=== PATIENT | male | born 1980 | race Caucasian/White ===

== ENCOUNTER 2024-08-27 15:23 | Emergency (ER) | payer OTHER, SELFPAY ==
--- NOTE | ~2024-08-27 | XR_ITS ---
EXAMINATION: XR SHOULDER, RIGHT CLINICAL INFORMATION: Right shoulder pain COMPARISON: None available. TECHNIQUE: AP external rotation, Grashey, scapular Y, and axillary views of the right shoulder. FINDINGS: Normal bone mineralization. No fracture, dislocation, or suspicious bone lesion. Normal alignment. The glenohumeral joint is normal. The AC joint demonstrates minimal superior spurring. There is a neutral lateral acromion. No undersurface spurring. The subacromial space is preserved. Remainder of the soft tissue and bony structures appear normal. XR/XR shoulder RT min 2V IMPRESSION: Normal right shoulder. Electronically signed by: Warren Roy MD 08/27/2024 04:38 PM EDT
[2024-08-27 15:35] VITALS: BP 137/87; PULSE 110; RESP 18; TEMP 36.8; O2SAT 98; BMI 33.3
--- NOTE | 2024-08-27 15:41 | ED.GENADULT ---
HPI - General Adult General Chief complaint: Extremity Injury, Upper Stated complaint: right shoulder inj Time Seen by Provider: 08/27/24 16:44 Source: patient Mode of arrival: ambulatory Limitations: no limitations History of Present Illness ED Provider: Renzo Tejeda [facility] narrative: 44 yold male healthy presents to the ED for right shoulder pain. Patient states he was playing with his 27 yold son and while play pushing his son he heard a pop in his right shoulder and ever since he has had pain. Patient denies any blunt trauma. Related Data Previous Rx's ?Medication ?Instructions ?Recorded naproxen 500 mg tablet 500 mg PO BID PRN pain #14 tabs 08/27/24 Allergies Allergy/AdvReac Type Severity Reaction Status Date / Time Iodinated Contrast Media Allergy Anaphylaxis Verified 08/27/24 15:38 [Contrast Dye] Review of Systems Review of Systems: right shoulder pain Yes all other systems are reviewed and are negative [facility] Social History Social History Advance Directives: No Advance Directives Information Provided: No Do you have a plan to hurt others: No Plan Physical Exam ED Vital Signs: Vital Signs - 24 hr 08/27/24 15:35 08/27/24 17:05 Temperature 98.2 F 98.2 F Pulse Rate 110 H 110 H Respiratory Rate 18 18 Blood Pressure 137/87 137/87 Pulse Oximetry 98 98 Oxygen Delivery Method Room Air Room Air BMI result Body Mass Index 33.3 Const General: cooperative, healthy appearing, comfortable, no acute distress, well developed, alert, awake and Physically active Orientation/consciousness: patient oriented x3 HENMT Head: Yes normal to inspection, Yes No palpable skull fracture present, Yes normocephalic, Yes atraumatic and No abrasion Eyes General: appearance normal, both eyes and all related structures Neck Neck: Yes normal visual inspection, Yes full ROM, Yes no lymphadenopathy, Yes no meningeal signs, Yes trachea midline, Yes supple, No anterior neck swelling and No tender Chest Chest palpation & inspection: normal inspection of the chest and normal palpation of entire chest wall Resp Effort & Inspection: normal respiratory effort and able to speak in complete sentences Auscultation: clear to auscultation bilaterally Cardio Jugular venous distension: no JVD Heart sounds: S1 normal heart sound present and S2 normal heart sound present GI Inspection: Yes normal to inspection Palpation (GI): Soft to palpation, not firm, nontender, no guarding and not rigid General: Yes no CVA tenderness Back/Spine/Pelvis Back: no CVA tenderness and No back tenderness Skin General skin exam: no rashes or lesions noted, elasticity normal and turgor normal Neuro General: patient oriented x3, gait normal, tone normal, moves all extremities, Normal light touch and pain sensation, no meningeal signs, no focal motor deficits and CN's II-XI intact bilaterally Extrem General: Yes normal to inspection, Yes full ROM and Yes capillary refill normal Shoulder/upper arm images: 1. positive for tenderness on palpation. negative for crepitus, erythema, deformities, ecchymosis, or swelling. positive for pain on range of motion. rest of extremity normal. Motor, neuro, and vascular exam is intact. Psych Appearance: grossly normal, well kempt and not disheveled Course Course Course Narrative: RME: 44 yold male presents to the ED for right shoulder pain. patient states he was play pushing with his son and while pushing his son he heard a pop in right shoulder. Patient is able to move right shoulder but with pain. Patient is able to bring right hand to left shoulder. Negative for any coldness, hotness, swelling or redness. Vascular neuro exam intact. Motor exam intact but limited due to pain. Shoulder x-ray ordered Medical Decision Making Medical Decision Making MDM Narrative: 44-year-old male presents to ED for right shoulder pain after hitting a pop in his shoulder while playing with his kids. Patient has pain on range of motion. Patient denies any swelling, redness on bluish black discoloration. X-ray normal negative for fracture. Physical exam negative for signs of DVT, osteomyelitis, necrotizing fasciitis, compartment syndrome, arterial occlusion, or any other life-threatening etiology. Physical exam indicates most likely muscle tear. Patient explained worrisome signs and informed return to the ED immediately. Patient informed he will need follow up with primary care provider and ortho for possible physical therapy and MRI if pain does not improve. Patient given copy of xray. Differential Diagnosis Differential Diagnoses: The differential diagnosis associated with the presentation includes (fracture, dislcocation) Admission/Observation Consideration of admission/observation: Escalation of care including admission/observation considered Independent Interpretation I performed an independent interpretation of an: Plain X-Ray Radiology Impression Discussion of test interpretation with radiology: I have reviewed the radiologist's reading. Independent Historian Clinical information obtained from an independent historian. History obtained from or confirmed by: Other (patient) Prescription Management I considered prescription management with: Pain Medication Discharge Plan Discharge Clinical Impression: Shoulder sprain Patient Disposition: Home, Self-Care Instructions: Shoulder Sprain (ED) Additional Instructions: Recommend follow up with primary care provider and orthopedic surgeon for possible physical therapy referral and MRI if there is no improvement in pain. You were placed in a sling. Do not stay in sling all day. Recommend removal of sling at times for range of motion activities for right shoulder. Return to the ED immediately for any worsening pain, swelling, popping sound, bluish discoloration, fever, chills, numbness/tingling, chest pain, shortness of breath, neck pain, or any other concerning symptoms. Prescriptions: New naproxen 500 mg tablet 500 mg PO BID PRN (Reason: pain) Qty: 14 0RF Referrals: [facility] [place] [facility] [Provider Group] (Shoulder sprain possible rotator cuff injury. Physical therapy MRI may be needed) Stand Alone Forms: Work/School Release Interventions: ED Discharge Assessment Last Done: 08/27/24 17:05 Discharge Date/Time: 08/27/24 17:08 Print Language: Ukrainian
[2024-08-27 17:05] VITALS: BP 137/87; PULSE 110; RESP 18; TEMP 36.8; O2SAT 98
== END 2024-08-27 17:08 | disposition home or self-care (01) ==
PROVIDERS: Emergency Provider Emergency Medicine Emergency Medical Services
DX: S43.401A Unspecified sprain of right shoulder joint, initial encounter (principal); M25.511 Pain in right shoulder; X50.9XXA Other and unspecified overexertion or strenuous movements or postures, initial encounter; Y93.9 Activity, unspecified; Y92.9 Unspecified place or not applicable; Y99.8 Other external cause status
CPT/HCPCS: 73030; 99282; 99283

== ENCOUNTER → 2024-08-27 15:39 | Outpatient (BNV) | payer OTHER, SELFPAY | PROVIDERS: Emergency Provider Emergency Medicine Emergency Medical Services; Visit Provider Radiology Diagnostic Radiology | DX: M25.511 Pain in right shoulder (principal) | CPT/HCPCS: 73030 ==

== ENCOUNTER 2024-09-25 12:20 | Outpatient (AMB) | payer OTHER, SELFPAY ==
--- NOTE | 2024-09-25 12:31 | A.OFFVIS_ITS ---
Vital Signs 09/25/24 12:32 Height 5 ft 5 in Weight 200 lb BMI 33.3 Intake Visit Reasons: ER-F/U Right Shoulder sprain-DOI 08/27/24 Intake Note: Stefano is a 44 year old right hand dominant male who presents today for a evaluation of his right shoulder pain, 08/27/24. Patient states he was playing with his 27 year old son. While playing he pushed his son and he heard a pop in his right shoulder. Since then he has been having pain. Patient was seen at the ED on 08/27/24 and they gave him a sling and recommended to remove the sling to work on gentle ROM. Patient reports that he is having pain all the time, and worsened with lifting . He has numbness. He is taking naproxen which is not helpfin. His pain is affecting his sleep. Allergies Iodinated Contrast Media [Contrast Dye] Allergy (Verified 09/25/24 12:36) Anaphylaxis HPI HPI ER-F/U Right Shoulder sprain-DOI 08/27/24: Details: Stefano is a 44 year old right hand dominant male who presents today for a evaluation of his right shoulder pain, 08/27/24. Patient states he was playing w ith his 27 year old son. While playing he pushed his son and he heard a pop in his right shoulder. Since then he has been having pain. Patient was seen at the ED on 08/27/24 and they gave him a sling and recommended to remove the sling to work on gentle ROM. Patient reports that he is having pain all the time, and worsened with lifting . He has numbness. He is taking naproxen which is not helpfin. His pain is affecting his sleep. Review of Systems Const All systems reviewed & are unremarkable except as noted in HPI and below Physical Exam Vital Signs: BMI result Body Mass Index 33.3 Extrem Other: Patient's right shoulder normal to inspection No erythema, ecchymosis, edema noted No lacerations, abrasions, open areas No evidence of infection Patient reports no tenderness to palpation of the bicipital groove, greater tuberosity, acromion, clavicle, or elsewhere on the right shoulder Patient is able to forward flex to approximately 90 degrees, but reports very significant pain when doing so on the right when compared to the left Bilateral external rotation approximately 60 degrees without pain Unable to assess empty can 3/5 strength on belly press on right, 5/5 on left Distal sensation intact Capillary refill brisk Assessment & Plan Assessment & Plan (1) Internal derangement of right shoulder: Code(s): M24.811 - Other specific joint derangements of right shoulder, not elsewhere classified Category: Medical Plan 1. Internal derangement of right shoulder Patient has been trying exercises at home for 4 weeks with no relief At this time, I feel that MRI is warranted to assess the internal structures of the right shoulder Patient was amenable to this plan Order placed Follow-up after MRI for results review and discussion of further treatment options if indicated, sooner with any acute concerns Orders: Orders MR shoulder RT wo con Today M77.8 - Other enthesopathies, not elsewhere classified Medications: Discontinued naproxen Discontinued Reason: Patient no longer taking 500 mg PO BID PRN 14 tabs 0RF pain Coding Level of Care Code New Pt Level 3 (75123) Diagnoses Internal derangement of right shoulder M24.811
[2024-09-25 12:32] VITALS: BMI 33.3
== END 2024-09-25 13:00 | disposition home or self-care (01) ==
PROVIDERS: PCP Internal Medicine
DX: M24.811 Other specific joint derangements of right shoulder, not elsewhere classified (principal)
CPT/HCPCS: 99203

== ENCOUNTER → 2024-09-25 12:20 | Outpatient (BNVA) | payer OTHER, SELFPAY | PROVIDERS: PCP Internal Medicine; Visit Provider Physician Assistant | DX: M24.811 Other specific joint derangements of right shoulder, not elsewhere classified (principal) | CPT/HCPCS: 99202 ==

== ENCOUNTER 2024-10-02 07:27 | Outpatient (REF) | payer OTHER, SELFPAY ==
--- NOTE | ~2024-10-02 | MR_ITS ---
CLINICAL HISTORY: M77.8 - Other enthesopathies, not elsewhere classified MR right shoulder Comparison: CR/SR - XR SHOULDER RT MIN 2V - 08/27/24 16:09 EDT Findings: No fracture or dislocation of the osseous structures. There is a trace amount of edema of the acromioclavicular joint. Bone marrow signal is otherwise normal. There is moderate acromioclavicular joint space narrowing. Glenohumeral cartilage is preserved. Large joint effusion. Moderate amount of fluid in the subacromial/ subdeltoid bursa. There is a complete tear of the supraspinatus tendon with retraction. No muscular atrophy. There is increased signal in the infraspinatus tendon with an interstitial partial tear. No complete tear or retraction. No muscular atrophy. There is increased signal in subscapularis tendon. There is partial tear of the bursal surface. No retraction or muscular atrophy. Teres minor is unremarkable. There is increased signal in the superior labrum from anterior to posterior. There is extension of signal abnormality into the bicipital labral anchor. The long head of the biceps tendon is intact. There is fluid within the tendon sheath. The coracoacromial and coracohumeral ligaments are intact. Cutaneous and subcutaneous tissues are normal. The quadrilateral space is unremarkable. Impression: Complete tear of the supraspinatus tendon with retraction. No muscular atrophy. Infraspinatus and subscapularis tendinopathy with partial tears. No retraction or muscular atrophy. Large joint effusion. Moderate amount of fluid in the subacromial/subdeltoid bursa. Tear of the superior labrum. Trace edema at the acromioclavicular joint, favored to be degenerative rather than posttraumatic. This document has been electronically signed by: Hannah Villanueva MD on 10/02/2024 21:18:22
== END 2024-10-02 07:28 | disposition home or self-care (01) ==
LOC: HO.MRI 07:27
DX: M77.8 Other enthesopathies, not elsewhere classified (principal)
CPT/HCPCS: 73221

== ENCOUNTER → 2024-10-02 07:29 | Outpatient (BNV) | payer OTHER, SELFPAY | PROVIDERS: Visit Provider Radiology Diagnostic Radiology | DX: M75.121 Complete rotator cuff tear or rupture of right shoulder, not specified as traumatic (principal); M25.411 Effusion, right shoulder | CPT/HCPCS: 73221 ==

== ENCOUNTER 2024-10-12 13:20 | Outpatient (AMB) | payer OTHER, SELFPAY ==
--- NOTE | 2024-10-12 14:00 | A.OFFVIS_ITS ---
Intake Visit Reasons: OV MR Review shoulder RT Intake Note: Stefano is a 44 year old right hand dominant male who presents today for a MRI review of the right shoulder. Patient reports he is having extreme pain with ADLs. He reports being unable to sleep at night from an exacerbation of aching pain. He was able to reposition his arm a current way to get some relief however he says this is no longer helping. He reports he knows he will be having a bad episode of pain when he gets burning sensation in the right shoulder. A couple of days ago he states he went to reach for something that was falling and re- injured the right shoulder. Daily constant numbness and tingling that runs through the right arm into his wrist and digits. He says he is trying to move it as much as possible to avoid stiffness but the pain is getting unbearable. Patient has tried naproxen, tramadol, gabapentin, and Tylenol Arthritis with no relief. RT Shoulder MRI wo con 10/02/24 Impression: Complete tear of the supraspinatus tendon with retraction. No muscular atrophy. Infraspinatus and subscapularis tendinopathy with partial tears. No retraction or muscular atrophy. Large joint effusion. Moderate amount of fluid in the subacromial/subdeltoid bursa. Tear of the superior labrum. Trace edema at the acromioclavicular joint, favored to be degenerative rather than posttraumatic. Allergies Iodinated Contrast Media [Contrast Dye] Allergy (Verified 10/12/24 14:06) Anaphylaxis bees Allergy (Severe, Uncoded 10/12/24 14:06) Anaphylaxis HPI HPI OV MR Review shoulder RT: Details: Stefano is a 44 year old right hand dominant male who presents today for a MRI review of the right shoulder. Patient reports he is having extreme pain with ADLs. He reports being unable to sleep at night from an exacerbation of aching pain. He was able to reposition his arm a current way to get some relief however he says this is no longer helping. He reports he knows he will be having a bad episode of pain when he gets burning sensation in the right shoulder. A couple of days ago he states he went to reach for something that was falling and re- injured the right shoulder. Daily constant numbness and tingling that runs through the right arm into his wrist and digits. He says he is trying to move it as much as possible to avoid stiffness but the pain is getting unbearable. Patient has tried naproxen, tramadol, gabapentin, and Tylenol Arthritis with no relief. RT Shoulder MRI wo con 10/02/24 Impression: Complete tear of the supraspinatus tendon with retraction. No muscular atrophy. Infraspinatus and subscapularis tendinopathy with partial tears. No retraction or muscular atrophy. Large joint effusion. Moderate amount of fluid in the subacromial/subdeltoid bursa. Tear of the superior labrum. Trace edema at the acromioclavicular joint, favored to be degenerative rather than posttraumatic. Review of Systems Const All systems reviewed & are unremarkable except as noted in HPI and below Physical Exam Extrem Other: Patient's right shoulder normal to inspection No erythema, ecchymosis, edema noted No lacerations, abrasions, open areas No evidence of infection Patient reports no tenderness to palpation of the bicipital groove, greater tuberosity, acromion, clavicle, or elsewhere on the right shoulder Patient is able to forward flex to approximately 90 degrees, but reports very significant pain when doing so on the right when compared to the left Bilateral external rotation approximately 60 degrees without pain Unable to assess empty can 3/5 strength on belly press on right, 5/5 on left Distal sensation intact Capillary refill brisk Assessment & Plan Assessment & Plan (1) Internal derangement of right shoulder: Code(s): M24.811 - Other specific joint derangements of right shoulder, not elsewhere classified Category: Medical Plan 1. Internal derangement of right shoulder Patient is educated about these injuries Patient is educated about the treatment options available At this time, I feel it is appropriate to refer the patient for surgical consult with Dr. Bush for discussion of results of the MRI and further treatment options if available Patient was amenable to this plan Follow-up for next available appointment with Dr. Bush for surgical consult, sooner with any acute concerns Coding Level of Care Code Est Pt Level 3 (95942) Diagnoses Internal derangement of right shoulder M24.811
== END 2024-10-12 14:28 | disposition home or self-care (01) ==
LOC: HO.HOS 13:20
DX: M24.811 Other specific joint derangements of right shoulder, not elsewhere classified (principal)
CPT/HCPCS: 99213

== ENCOUNTER → 2024-10-12 13:20 | Outpatient (BNVA) | payer OTHER, SELFPAY | DX: M24.811 Other specific joint derangements of right shoulder, not elsewhere classified (principal) | CPT/HCPCS: 99212 ==

== ENCOUNTER 2024-10-21 07:47 | Emergency (ER) | payer OTHER, SELFPAY ==
--- NOTE | ~2024-10-21 | XR_ITS ---
CLINICAL HISTORY: acute on chronic shoulder injury 3 view right shoulder Comparison: 08/27/2024 Findings: No fractures or dislocations. No significant arthritic change. No erosions. No radiopaque foreign body. IMPRESSION: 1. No acute findings This document has been electronically signed by: Juan Jose Solano MD on 10/21/2024 08:57:48
[2024-10-21 07:53] VITALS: BP 151/80; PULSE 100; RESP 18; TEMP 36.4; O2SAT 95; BMI 32.8
--- NOTE | 2024-10-21 08:04 | ED.EXTPRO ---
HPI - Extremity Problem General Chief complaint: Extremity Injury, Upper Stated complaint: R shoulder pain Time Seen by Provider: 10/21/24 08:02 Source: patient and family () Mode of arrival: ambulatory Limitations: no limitations History of Present Illness ED Provider: SHELLY SALES PA-C HPI Narrative: 44 year old right hand dominant male with pmhx significant for HTN, GERD, HLD, DM presents to the ED today for evaluation of acute on chronic right shoulder pain x3 days. Patient currently follows with ortho for right rotator cuff tear. He has surgery scheduled for 11/01/2024 with our orthopedic surgeon. This past Tuesday, 3 days ago, he attempted to catch his who was falling. Reports immediate pain to his right shoulder, felt a crack . Denies blunt injury or trauma. Since this time has had increased pain to the outer aspect of his right shoulder extending down the arm. Reports associated numbness to the right upper extremity. He does state that prior to injury 3 days ago, he had significantly decreased range of motion secondary to rotator cuff tear. He has been taking gabapentin, tramadol, Tylenol without relief. Last dose of all of these was yesterday. Admits to wearing a sling at home. He did not wear this to the ED today. You reports calling his electronic health records specialist and was advised to come to the ED for further evaluation. Related Data Home Medications ?Medication ?Instructions ?Recorded ?Confirmed amlodipine 10 mg tablet 10 mg PO DAILY 09/25/24 dulaglutide 3 mg/0.5 mL mg subcut 09/25/24 subcutaneous pen injector (Trulicity) empagliflozin 25 mg tablet 25 mg PO DAILY 09/25/24 (Jardiance) lisinopril 20 mg tablet 20 mg PO DAILY 09/25/24 metoprolol tartrate 100 mg tablet 100 mg PO BID 09/25/24 nabumetone 750 mg tablet 750 mg PO BID 09/25/24 pantoprazole 20 mg tablet,delayed 20 mg PO DAILY 09/25/24 release prasugrel HCl 10 mg tablet 10 mg PO DAILY 09/25/24 rosuvastatin 40 mg tablet 40 mg PO DAILY 09/25/24 Previous Rx's ?Medication ?Instructions ?Recorded oxycodone 5 mg tablet 5 mg PO Q8H PRN pain (scale score 10/21/24 7-10) #9 tabs Allergies Allergy/AdvReac Type Severity Reaction Status Date / Time Iodinated Contrast Media Allergy Anaphylaxis Verified 10/21/24 07:57 [Contrast Dye] bees Allergy Severe Anaphylaxis Uncoded 10/12/24 14:06 Review of Systems Review of Systems: Constitutional: No fever, chills, fatigue, night sweats, weight changes ENT/Mouth: No ear pain, hearing loss, nasal congestion, sinus pain, rhinorrhea, sore throat Eyes: No eye pain, swelling, redness, vision changes, discharge Cardio: No chest pain, palpitations, SCOTT, orthopnea, peripheral edema Pulm: No SOB, cough, sputum, wheezing, dyspnea, hemoptysis GI: No nausea, vomiting, hematemesis, abdominal pain, diarrhea, constipation, hematochezia, melena : No irregular bleeding, dysuria, frequency, urgency, hesitancy, hematuria, flank pain, urinary flow changes, urinary incontinence or retention MSK: No back pain, neck pain, joint pain, myalgias, +right shoulder pain Skin: No lesions, rashes Neuro: No weakness, numbness, paresthesias, LOC, dizziness, headache Psych: No anxiety/panic, depression, SI/HI, AH/VH All other systems reviewed and are negative. Yes all other systems are reviewed and are negative [facility] Past Medical History Attestation statement: The following information was validated with the patient. Source: old records reviewed, obtained from family and nursing notes reviewed Social History Social History Smoked in Last 30 Days: No Use of substances other than those prescribed or required for medical reasons: No Advance Directives: No Advance Directives Information Provided: Yes Do you have a plan to hurt others: No Plan Physical Exam Vital Signs: Vital Signs: Last Vital Signs Temp 97.9 F 10/21/24 08:46 Pulse 76 10/21/24 08:46 Resp 18 10/21/24 08:46 BP 145/88 H 10/21/24 08:46 Pulse Ox 98 10/21/24 08:46 O2 Del Method Room Air 10/21/24 08:46 BMI result Body Mass Index 32.8 Hypertensive, afebrile General: Well appearing, in no acute distress. Skin: Warm, dry, intact. No rashes or lesions. Head: Normocephalic, atraumatic. EENT: Hearing is intact b/l. Conjunctiva clear. Sclera is anicteric. PERRLA. EOM intact. Moist mucous membranes.? Cardiac: Chest wall symmetric. RRR Lungs: Normal respiratory effort without accessory muscle use. CTA bilaterally. Ext: +no noted deformity or swelling to right shoulder. Significantly decreased active ROM to right shoulder including abduction and extension. Holding right upper extremity in adduction. Tender to palpation along lateral aspect of right shoulder without palpable deformity, crepitus or fluctuance. No warmth. [employer] strength intact to right. Able to move all digits on right hand. Able to supinate and pronate right forearm. Sensation intact to light touch to entire right upper extremity. 2+ radial pulse intact. Neuro: AOx3. Normal speech. Ambulating with steady gait. Course Course Course Narrative: X-ray right shoulder unremarkable. Likely acute on chronic rotator cuff injury. Patient endorses improvement in pain with the oxycodone. Will send this to pharmacy. Provided with take-home Narcan. Advised not to take with tramadol. He will be calling electronic health records specialist tomorrow morning for follow up. He has surgery scheduled on 11/01/2024. Patient has remained stable throughout ED visit today. Discussed worrisome signs and symptoms and when to return to the ED. All questions answered at this time. Patient is agreeable with disposition and stable for discharge. Medications Administered Discontinued Medications Generic Name Dose Route Start Last Admin Trade Name Freq PRN Reason Stop Dose Admin Oxycodone HCl 5 mg 10/21/24 08:35 10/21/24 08:48 Oxycodone Hcl Immed Release 5 Mg Tablet PO 10/21/24 08:36 5 mg ONCE ONE Administration Medical Decision Making Medical Decision Making [facility] Narrative: 44 year old right hand dominant male with pmhx significant for HTN, GERD, HLD, DM presents to the ED today for evaluation of acute on chronic right shoulder pain x3 days. Hypertensive, vitals otherwise WNL. Afebrile. He is nontoxic appearing in no acute distress. On exam, no noted deformity or swelling to right shoulder. Significantly decreased active ROM to right shoulder including abduction and extension. Holding right upper extremity in adduction. Tender to palpation along lateral aspect of right shoulder without palpable deformity, crepitus or fluctuance. No warmth. [employer] strength intact to right. Able to move all digits on right hand. Able to supinate and pronate right forearm. Sensation intact to light touch to entire right upper extremity. 2+ radial pulse intact. Differential diagnosis includes arthritis, MSK sprain/strain, rotator cuff injury/tear, tendonitis. Lower suspicion for fracture, dislocation. Unlikely neurovascular compromise, threat to limb, compartment syndrome. Presentation not consistent with gout, pseudogout, septic joint, Lyme arthritis. Presentation not consistent with cervical radiculopathy. Plan for x-rays, pain control and re-evaluation. Differential Diagnosis Differential Diagnoses: The differential diagnosis associated with the presentation includes As above Admission/Observation Not indicated Independent Interpretation I performed an independent interpretation of an: Plain X-Ray and MRI Interpretation: X-ray right shoulder without fracture MRI shoulder from 10/02/2024 showing complete tear of supraspinatus tendon along with infraspinatus and subscapularis tendinopathy Radiology Impression Discussion of test interpretation with radiology: I have reviewed the radiologist's reading. Radiologist Impression: Date of Service: 10/02/24 Procedure(s): MR shoulder RT wo con Accession Number(s): [id number] cc: Kane Zuluaga; Physician,Unknown ~ CLINICAL HISTORY: M77.8 - Other enthesopathies, not elsewhere classified MR right shoulder Comparison: CR/SR - XR SHOULDER RT MIN 2V - 08/27/24 16:09 EDT Findings: No fracture or dislocation of the osseous structures. There is a trace amount of edema of the acromioclavicular joint. Bone marrow signal is otherwise normal. There is moderate acromioclavicular joint space narrowing. Glenohumeral cartilage is preserved. Large joint effusion. Moderate amount of fluid in the subacromial/ subdeltoid bursa. There is a complete tear of the supraspinatus tendon with retraction. No muscular atrophy. There is increased signal in the infraspinatus tendon with an interstitial partial tear. No complete tear or retraction. No muscular atrophy. There is increased signal in subscapularis tendon. There is partial tear of the bursal surface. No retraction or muscular atrophy. Teres minor is unremarkable. There is increased signal in the superior labrum from anterior to posterior. There is extension of signal abnormality into the bicipital labral anchor. The long head of the biceps tendon is intact. There is fluid within the tendon sheath. The coracoacromial and coracohumeral ligaments are intact. Cutaneous and subcutaneous tissues are normal. The quadrilateral space is unremarkable. Impression: Complete tear of the supraspinatus tendon with retraction. No muscular atrophy. Infraspinatus and subscapularis tendinopathy with partial tears. No retraction or muscular atrophy. Large joint effusion. Moderate amount of fluid in the subacromial/subdeltoid bursa. Tear of the superior labrum. Trace edema at the acromioclavicular joint, favored to be degenerative rather than posttraumatic. This document has been electronically signed by: Hannah Villanueva MD on 10/02/2024 21:18:22 Date of Service: 10/21/24 Procedure(s): XR shoulder RT min 2V Accession Number(s): [id number] cc: Physician,Unknown ; Shelly Sales~ CLINICAL HISTORY: acute on chronic shoulder injury 3 view right shoulder Comparison: 08/27/2024 Findings: No fractures or dislocations. No significant arthritic change. No erosions. No radiopaque foreign body. IMPRESSION: 1. No acute findings This document has been electronically signed by: Juan Jose Solano MD on 10/21/2024 08:57:48 Independent Historian Clinical information obtained from an independent historian. History obtained from or confirmed by: Spouse External Record Review External record reviewed: Inpatient record Prescription Management I considered prescription management with: Pain Medication (oxycodone) Chronic Conditions Patient?s care impacted by: Hypertension Social Determinants Patient?s care significantly limited by Social Determinants of Health including: Other Social Determinant of Health Critical Care Time Critical Care Time Critical Care Time: No Discharge Plan Discharge Clinical Impression: Rotator cuff injury Qualifiers: Encounter type: sequela Laterality: right Qualified Code(s): S46.001S - Unspecified injury of muscle(s) and tendon(s) of the rotator cuff of right shoulder, sequela Patient Disposition: Home, Self-Care Instructions: Rotator Cuff Injury (ED), Rotator Cuff Injury Exercises (DC) Additional Instructions: You were seen in the ED today for acute on chronic right shoulder pain. The x-ray of your right shoulder is unremarkable. There is no obvious fracture or dislocation. You likely re-injured your rotator cuff muscles. You have follow up with ortho with surgery scheduled this month. I advise you to call their office tomorrow morning to touch base. You may take Tylenol at home as needed for pain. I am sending Oxycodone, a controlled pain medication, to your pharmacy for you to take for breakthrough pain control. Please use this with caution as opioid pain medications have addictive properties. DO NOT TAKE THIS WITH TRAMADOL. I have also provided you with Narcan as accidental overdoses on oxycodone can occur. Opioid pain medications can often cause constipation. I recommend taking this with an over the counter laxative and/or stool softener to help move your bowels. Use your sling at home to help with discomfort. Return with any new or worsening symptoms. In the case of an emergency call 911. Prescriptions: New oxycodone 5 mg tablet 5 mg PO Q8H PRN (Reason: pain (scale score 7-10)) Qty: 9 0RF Rx Instructions: Partial Fill upon patient request. No Action pantoprazole 20 mg tablet,delayed release (DR/EC) 20 mg PO DAILY Trulicity 3 mg/0.5 mL pen injector subcut metoprolol tartrate 100 mg tablet 100 mg PO BID nabumetone 750 mg tablet 750 mg PO BID prasugrel HCl 10 mg tablet 10 mg PO DAILY Jardiance 25 mg tablet 25 mg PO DAILY rosuvastatin 40 mg tablet 40 mg PO DAILY amlodipine 10 mg tablet 10 mg PO DAILY lisinopril 20 mg tablet 20 mg PO DAILY Referrals: [facility] [place] Orthopedic Surgeons [Provider Group] Stand Alone Forms: Work/School Release Print Language: [place]
[2024-10-21 08:46] VITALS: BP 145/88; PULSE 76; RESP 18; TEMP 36.6; O2SAT 98
[2024-10-21] MEDS: oxyCODONE HCl Immed Release 5 MG TABLET PO (08:48)
[2024-10-21] MEDS: Naloxone HCl Nasal TAKE HOME 4 MG SPRAY 8 MG NOSTRILALT (10:56)
[2024-10-21 10:57] VITALS: BP 145/88; PULSE 76; RESP 18; TEMP 36.6; O2SAT 98
== END 2024-10-21 10:58 | disposition home or self-care (01) ==
PROVIDERS: Emergency Provider Emergency Medicine
DX: M77.8 Other enthesopathies, not elsewhere classified (principal); S46.001S Unspecified injury of muscle(s) and tendon(s) of the rotator cuff of right shoulder, sequela; X58.XXXS Exposure to other specified factors, sequela; M25.511 Pain in right shoulder; I10 Essential (primary) hypertension; E11.9 Type 2 diabetes mellitus without complications; K21.9 Gastro-esophageal reflux disease without esophagitis
CPT/HCPCS: 73030; 99283; 99284

== ENCOUNTER → 2024-10-21 08:06 | Outpatient (BNV) | payer OTHER, SELFPAY | PROVIDERS: Emergency Provider Emergency Medicine; Visit Provider Specialist | DX: M25.511 Pain in right shoulder (principal) | CPT/HCPCS: 73030 ==

== ENCOUNTER 2024-10-28 15:33 | Emergency (ER) | payer OTHER, SELFPAY ==
[2024-10-28 15:50] VITALS: BP 162/93; PULSE 98; RESP 18; TEMP 36.6; O2SAT 98; BMI 31.8
--- NOTE | 2024-10-28 15:50 | ED.UPPEXIN ---
HPI - Extremity Injury (Upper) General Chief Complaint: Extremity Injury, Upper Stated Complaint: R shoulder pain - scheduled for surgery 11/01 Time Seen by Provider: 10/28/24 17:30 Source: patient and RN notes reviewed Mode of arrival: ambulatory Limitations: no limitations History of Present Illness ED Provider: Kriss Pearson PA-C HPI narrative: This is a 44-year-old male who presents emergency department with concerns of right shoulder pain. Patient was initially seen in the emergency department on August 27 after injuring his right shoulder while playing with his 27-year-old son, states that he pushed his sudden heard a popping sensation in his right shoulder. He was told to follow-up with the orthopedist. He was seen by Orthopedics on September 25, 2024 where they recommended home exercises, and got an MRI. MRI of the right shoulder revealed a complete tear of the supraspinatus tendon with retraction as well as infraspinatus and subscapularis tendinopathy with partial tears with a large joint effusion, moderate amount of fluid in the subacromial / subdeltoid bursa, Tear of the superior labrum, and trace edema in the AC joint. He was advised follow-up with Dr. Bush for surgical consult. He was then seen in the emergency room on October 21 after re-injuring his right shoulder after attempting to catch his who is falling, Repeat x-rays revealed no acute findings, he was discharged on oxycodone. He states that he has had no new injury or trauma however states that he ran out of the oxycodone, has been taking Tylenol, gabapentin, and tramadol which has not been helping his pain. He states that he is unable to sleep secondary to the pain. Denies any chest pain or shortness of breath. no other complaints or concerns at this time. complaint: injury to: shoulder Related Data Home Medications ?Medication ?Instructions ?Recorded ?Confirmed amlodipine 10 mg tablet 10 mg PO DAILY 09/25/24 dulaglutide 3 mg/0.5 mL mg subcut 09/25/24 subcutaneous pen injector (Trulicity) empagliflozin 25 mg tablet 25 mg PO DAILY 09/25/24 (Jardiance) lisinopril 20 mg tablet 20 mg PO DAILY 09/25/24 metoprolol tartrate 100 mg tablet 100 mg PO BID 09/25/24 nabumetone 750 mg tablet 750 mg PO BID 09/25/24 pantoprazole 20 mg tablet,delayed 20 mg PO DAILY 09/25/24 release prasugrel HCl 10 mg tablet 10 mg PO DAILY 09/25/24 rosuvastatin 40 mg tablet 40 mg PO DAILY 09/25/24 Previous Rx's ?Medication ?Instructions ?Recorded oxycodone 5 mg tablet 5 mg PO Q8H PRN pain (scale score 10/21/24 7-10) #9 tabs lidocaine 5 % topical patch 1 patch topical DAILY #30 ea 10/28/24 oxycodone 5 mg tablet 5 mg PO Q8H #10 tabs 10/28/24 Allergies Allergy/AdvReac Type Severity Reaction Status Date / Time Iodinated Contrast Media Allergy Anaphylaxis Verified 10/28/24 15:53 [Contrast Dye] bees Allergy Severe Anaphylaxis Uncoded 10/28/24 15:53 Review of Systems Review of Systems: Yes all other systems are reviewed and are negative Constitutional: Constitutional: Reports as per [facility] Social History Social History Smoked in Last 30 Days: Yes Use of substances other than those prescribed or required for medical reasons: No Advance Directives: No Advance Directives Information Provided: No Do you have a plan to hurt others: No Plan Physical Exam Vital Signs: Vital Signs: Last Vital Signs Temp 98.9 F 10/28/24 18:01 Pulse 94 10/28/24 18:01 Resp 18 10/28/24 18:01 BP 137/92 H 10/28/24 18:01 Pulse Ox 96 10/28/24 18:01 O2 Del Method Room Air 10/28/24 18:01 BMI result Body Mass Index 31.8 Const: General: cooperative, comfortable and no acute distress Orientation/consciousness: patient oriented x3 Limitations: no limitations HEENT: Head: Yes normal to inspection, Yes normocephalic and Yes atraumatic Ears: hearing grossly normal bilaterally General nose exam: Normal external nose present Face and sinus: Yes normal facial exam Mouth: Normal oral and palatal mucosa present, oropharynx normal and moist mucous membranes Throat: Yes posterior oropharynx normal Eyes: General: appearance normal, both eyes and all related structures Eyelids: Yes eyelids normal Conjunctivae: conjunctivae normal Sclerae: sclerae normal Pupils: Equal, round and reactive pupils present EOM: EOMs intact bilaterally Neck: Neck: Yes normal visual inspection, Yes full ROM and Yes no lymphadenopathy Lymphatic: no lymphadenopathy noted Chest: Chest palpation & inspection: normal inspection of the chest Resp: Effort & Inspection: normal respiratory effort and able to speak in complete sentences Auscultation: clear to auscultation bilaterally, no crackles, no rales, no rhonchi and no wheezes Cardio: Rate: regular rate Rhythm: regular rhythm Heart sounds: S1 normal heart sound present and S2 normal heart sound present GI: Inspection: Yes normal to inspection Skin: General skin exam: no rashes or lesions noted Trauma: no lacerations or abrasions Wounds: no wounds Neuro: General: patient oriented x3 and moves all extremities Cranial nerves: Yes Equal, round and reactive pupils present Extrem: Other: Right shoulder with no obvious bony deformity or swelling. Nontender to palpation, he does have pain with forward flexion, unable to actively lift right arm. strong radial pulse, distal sensation circulation intact. Patient with decreased passive range of motion, able to fully at approximately degrees, and 40 degrees abdution. General: Yes normal to inspection Left upper extremity: normal to inspection Right lower extremity: normal to inspection Left lower extremity: normal to inspection Course Course Course Narrative: This is a Rapid Medical Exam performed in triage by Joanne Zhao PA-C. Full HPI, ROS and PE to be performed by primary ED provider. 44 yo M presenting to the ED c/o R shoulder pain, acute on chronic since last week s/p helping up when she fell. Scheduled for surgery on 11/01 for Complete tear of the supraspinatus tendon with retraction see on MRI from 10/02/24. Admits to assoc tingling. Denies more recent injury/fall PE: limited R shoulder ROM 2/2 pain. uncomfortable Plan: needs pain control Medications Administered Discontinued Medications Generic Name Dose Route Start Last Admin Trade Name Freq PRN Reason Stop Dose Admin Oxycodone HCl 5 mg 10/28/24 17:42 10/28/24 17:56 Oxycodone Hcl Immed Release 5 Mg Tablet PO 10/28/24 17:43 5 mg ONCE ONE Administration Medical Decision Making Medical Decision Making MDM Narrative: This is a 44-year-old male who presents emergency department with concerns of right shoulder pain. patient initial injury was in August, and then re-injured his right shoulder on October 21. Patient has been seen by Orthopedics, and is scheduled to have surgery on November 01 by the orthopedic team. Patient has been taking gabapentin, Tylenol, as well as tramadol without any relief. He was given oxycodone at his last visit on October 21, which he is currently out of. He states that this was the only medication that provided him relief. He states that he has significant pain, and he is unable to sleep. He is unable to take NSAIDs given he is on prasugrel - a type of antiplatelet. Patient with no new injury therefore repeat x-rays not indicated at this time. Discussed with patient that he needs to continue taking Tylenol and I will give a short supply of oxycodone to get him to his surgery date for this . I gave him strict return precautions. warned against adverse side effects of oxycodone as well as addictive properties. I stressed the importance of only reserving this for severe pain only. He understands that he can not return for medication refill. Patient discharged with strict return precautions. Stable for discharge Differential Diagnosis Differential Diagnoses: The differential diagnosis associated with the presentation includes strain, sprain, internal derangement of the ligaments of the shoulder, re-injury, arthritis Discharge Plan Discharge Clinical Impression: Internal derangement of right shoulder Shoulder pain Qualifiers: Chronicity: chronic Laterality: right Qualified Code(s): M25.511 - Pain in right shoulder Patient Disposition: Home, Self-Care Instructions: Shoulder Pain (ED) Additional Instructions: You were seen in the emergency department due to ongoing right shoulder pain. Continue taking Tylenol, you can take Tylenol 500-1000 mg every 8 hours as needed for [id number] pain. You not exceed more than 3000 g in a 24 hour period. Lidocaine patches can also help with your symptoms, apply directly to your shoulder. Do not apply ice or heat directly to the patches this can cause a burn to your skin. Oxycodone is a strong narcotic pain medication. Only use this for severe pain only, please be advised that this is an addictive medication therefore should only be reserved for emergency/ severe pain only. Please be advised that this is addictive medication and therefore should only be used for severe pain. Do not drink or drive while taking this medication as it can cause drowsiness. We can not refill this medication through the emergency room. Please follow-up with the orthopedist as scheduled. If any new or worsening symptoms occur including but not limited to severe chest pain or shortness of breath, please seek emergent care. Prescriptions: New oxycodone 5 mg tablet 5 mg PO Q8H Qty: 10 0RF Rx Instructions: Partial Fill upon patient request. lidocaine 5 % adhesive patch,medicated 1 patch topical DAILY Qty: 30 0RF Rx Instructions: leave on most painful area for up to 12 hrs No Action oxycodone 5 mg tablet 5 mg PO Q8H PRN (Reason: pain (scale score 7-10)) Qty: 9 0RF Rx Instructions: Partial Fill upon patient request. pantoprazole 20 mg tablet,delayed release (DR/EC) 20 mg PO DAILY Trulicity 3 mg/0.5 mL pen injector subcut metoprolol tartrate 100 mg tablet 100 mg PO BID nabumetone 750 mg tablet 750 mg PO BID prasugrel HCl 10 mg tablet 10 mg PO DAILY Jardiance 25 mg tablet 25 mg PO DAILY rosuvastatin 40 mg tablet 40 mg PO DAILY amlodipine 10 mg tablet 10 mg PO DAILY lisinopril 20 mg tablet 20 mg PO DAILY Interventions: ED Discharge Assessment Last Done: 10/28/24 18:01 Discharge Date/Time: 10/28/24 18:02 Print Language: [place]
[2024-10-28 17:19] VITALS: BP 137/92; PULSE 94; RESP 18; TEMP 37.2; O2SAT 96
--- NOTE | 2024-10-28 17:33 | PC.NURSE ---
Patient A&Ox 3. Patient presents to ED c/o right shoulder pain rated 10/10 non radiating. Patient stated I reinjured my shoulder trying to help my get up . Patient torn ligaments in right shoulder on 08/27/24. Patient has surgery coming up on 11/01. +CMS Patient able to bend arm at elbow but unable to abduct right arm from body. Denies SOB. Denies n/v. Reports numbness in right hand but able to move fingers. Patient has sling but left it at home. Patient uses OTC medications for pain but are reported to be not effective. Provider in with patient at this time. Plan of care on going
[2024-10-28] MEDS: oxyCODONE HCl Immed Release 5 MG TABLET PO (17:56)
[2024-10-28 18:01] VITALS: BP 137/92; PULSE 94; RESP 18; TEMP 37.2; O2SAT 96
== END 2024-10-28 18:02 | disposition home or self-care (01) ==
PROVIDERS: Emergency Provider Emergency Medicine
DX: M25.511 Pain in right shoulder (principal); S46.011A Strain of muscle(s) and tendon(s) of the rotator cuff of right shoulder, initial encounter; X50.9XXA Other and unspecified overexertion or strenuous movements or postures, initial encounter; Y93.9 Activity, unspecified; Y92.9 Unspecified place or not applicable; Y99.9 Unspecified external cause status
CPT/HCPCS: 99283; 99284

== ENCOUNTER 2024-11-01 10:27 | Outpatient (AMB) | payer OTHER, SELFPAY ==
--- NOTE | 2024-11-01 10:45 | MHC.OFFVIS ---
Intake Visit Reasons: OV- R shoulder RTC tear/sx consult Intake Note: Stefano is a 44 year old right hand dominant male who presents today for a follow up of his right shoulder to discuss possible surgical intervention. He was last seen with [facility] where he reported pain with AODL, numbness and tingling. He was seen at [facility] on 10/21/24 for an increase of pain after catching his when she was falling. Allergies Iodinated Contrast Media [Contrast Dye] Allergy (Verified 10/28/24 15:53) Anaphylaxis bees Allergy (Severe, Uncoded 10/28/24 15:53) Anaphylaxis HPI HPI OV- R shoulder RTC tear/sx consult: Details: Stefano is a 44 year old right hand dominant male who presents today for a follow up of his right shoulder to discuss possible surgical intervention. He was last seen with [facility] where he reported pain with AODL, numbness and tingling. He was seen at [facility] on 10/21/24 for an increase of pain after catching his when she was falling. He has been having difficulty abducting his arm since then. He has been trying to work and throughout daily life he has re-injured his shoulder repeatedly and has gotten to the point that his function is very poor. 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 He had an MRI which showed a full-thickness rotator cuff tear without atrophy. Physical Exam Extrem Other: Markedly positive empty can (4-/5) with external rotation to 45 degrees. Poor scapular mechanics and scapular recruitment required for abduction. Results Reviewed Results Reviewed: I personally reviewed the MR images. MRI Right Shoulder 10/02/24: Complete tear of the supraspinatus tendon with retraction. No muscular atrophy. Infraspinatus and subscapularis tendinopathy with partial tears. No retraction or muscular atrophy. Large joint effusion. Moderate amount of fluid in the subacromial/subdeltoid bursa. Tear of the superior labrum. Trace edema at the acromioclavicular joint, favored to be degenerative rather than posttraumatic. Assessment & Plan Assessment & Plan (1) Rotator cuff tear, right: Code(s): M75.101 - Unspecified rotator cuff tear or rupture of right shoulder, not specified as traumatic Category: Medical Plan: Stefano is a 44-year-old gentleman, right-hand dominant, who has a full-thickness rotator cuff tear on the right. His passive motion is reasonable but he is extremely weak in abduction. I reviewed the MRI and I reviewed his exam with him and I recommend rotator cuff repair. I informed him of the risks, benefits and alternatives of surgery including, but limited to, the risk of infection, stiffness, need for further surgery, pain, re-injury as well as medical complications associated with surgery such as blood clots, pneumonia. He expressed understanding and we will proceed forward accordingly. In the meantime I recommend that he avoid heavy lifting and that he remain out work. Coding Level of Care Code Est Pt Level 4 (51365) Diagnoses Rotator cuff tear, right M75.101
== END 2024-11-01 13:13 | disposition home or self-care (01) ==
LOC: HO.HOS 10:28
PROVIDERS: Visit Provider Orthopaedic Surgery
DX: M75.101 Unspecified rotator cuff tear or rupture of right shoulder, not specified as traumatic (principal)
CPT/HCPCS: 99214

== ENCOUNTER → 2024-11-01 10:27 | Outpatient (BNVA) | payer OTHER, SELFPAY | PROVIDERS: Visit Provider Orthopaedic Surgery | DX: M25.511 Pain in right shoulder (principal); M75.101 Unspecified rotator cuff tear or rupture of right shoulder, not specified as traumatic | CPT/HCPCS: 99212 ==

== ENCOUNTER 2024-12-14 13:08 | Outpatient (AMB) | payer OTHER, SELFPAY ==
[2024-12-14 13:14] VITALS: BMI 31.8
--- NOTE | 2024-12-14 13:14 | MHC.OFFVIS ---
Vital Signs 12/14/24 13:14 Height 5 ft 5 in Weight 191 lb BMI 31.8 Intake Visit Reasons: Pre-Rt RTC 12/19/24 NE Intake Note: Stefano is a 44 year old right hand dominant male who presents today for a pre operative appointment for his RT RTC 12/19/24 NE. Patient was given the pain management form with exercises, vitals were obtained and he was fitted for a sling. Allergies bee pollen (bee stings) Allergy (Severe, Verified 12/14/24 13:15) Anaphylaxis Iodinated Contrast Media (Contrast Dye) Allergy (Severe, Verified 12/14/24 13:15) Anaphylaxis NSAIDS (Non-Steroidal Anti-Inflamma Adverse Reaction (Intermediate, Verified 12/14/24 13:15) Abdominal Pain HPI HPI Pre-Rt RTC 12/19/24 NE: Details: Mr. Ricardo is a 44-year-old right-hand dominant male who presents to the office today for his history and physical examination pending right shoulder rotator cuff repair tentatively scheduled for 12/19/[address] Bush. Patient had an MRI obtained of the right shoulder and was diagnosed with a full-thickness rotator cuff tear. Patient has an allergy to NSAIDs and IV contrast. Past medical history significant for: hypertension, GERD, HLD, diabetes, [place] x 2 (2021), Stent placement 2021, Recent A1c 7.2 (11/14) [facility] Medical History (Updated 12/05/24 @ 10:50 by Yuni Machado RN) Arthritis Non-alcoholic fatty liver disease Claustrophobia Asthma Myocardial infarction Migraines MERCEDEZ (obstructive sleep apnea) CAD (coronary artery disease) Diabetes GERD (gastroesophageal reflux disease) Elevated cholesterol HTN (hypertension) Surgical History Hx of cardiac catheterization History of esophagogastroduodenoscopy (EGD) H/O colonoscopy Hx of cholecystectomy Hx of heart artery stent Social History Are you a primary student career development specialist to a significant other at home: No Do you presently have visiting nurse or other home services: No Patient Tobacco Use Status: Current everyday Tobacco user Tobacco use type: Cigarette Cigarettes Per Day: 10 Years Smoked: 32 Review of Systems Const All systems reviewed & are unremarkable except as noted in HPI and below Physical Exam Vital Signs: BMI result Body Mass Index 31.8 Const General: cooperative, healthy appearing and no acute distress Resp Effort & Inspection: normal respiratory effort and able to speak in complete sentences Extrem Other: Markedly positive empty can (4-/5) with external rotation to 45 degrees. Poor scapular mechanics and scapular recruitment required for abduction. Assessment & Plan Assessment & Plan (1) Rotator cuff tear, right: Code(s): M75.101 - Unspecified rotator cuff tear or rupture of right shoulder, not specified as traumatic Category: Medical Plan Mr. Ricardo is a 44-year-old right-hand dominant male who presents to the office today for his history and physical examination pending right shoulder rotator cuff repair tentatively scheduled for 12/19/[address] Bush. Patient had an MRI obtained of the right shoulder and was diagnosed with a full-thickness rotator cuff tear. Patient has an allergy to NSAIDs and IV contrast. Past medical history significant for: hypertension, GERD, HLD, diabetes, [place] x 2 (2021), Stent placement 2021, Recent A1c 7.2 (11/14) Patient has stopped taking Trulicity as well as Prasugrel in preparation for surgery. I discussed in detail the procedure and what to expect pre and post operatively. We discussed the risks, benefits and alternatives to the surgery as well as the rehabilitation course. The risks; which include, but are not limited to infection, bleeding, nerve injury, ongoing pain, swelling, and stiffness, perioperative risk of injury to bones and soft tissues, and blood clots. I?ve answered all questions and with their understanding they have consented to move forward with right shoulder rotator cuff repair with Dr. Bush. Coding Level of Care Code Global (13375) Diagnoses Rotator cuff tear, right M75.101
== END 2024-12-14 13:35 | disposition home or self-care (01) ==
LOC: HO.HOS 13:09
PROVIDERS: Visit Provider Physician Assistant
DX: M75.101 Unspecified rotator cuff tear or rupture of right shoulder, not specified as traumatic (principal)
CPT/HCPCS: 99024

== ENCOUNTER 2024-12-19 06:57 | Day surgery (SDC) | payer OTHER, SELFPAY ==
[2024-12-05 09:59] VITALS: BP 129/70; PULSE 110; RESP 20; O2SAT 96; BMI 32.8
--- NOTE | 2024-12-05 10:10 | HO.ANESPROP2 ---
Documented by User: Maria Guadalupe Steele NP 12/18/24 09:12 HPI - Anesthesia Eval Consult details Narrative: 44yo M for Right Arthroscopic Rotator Cuff Repair, 12/19/24 Medically optimized per [facility] Pre[facility] No recent illness No CP/SOB with a lot of walking, 3 flights of stairs at home CAD s/p [place] x 2/Stents: 2022. Previously followed cardiololgy in [place] - new pt appointment in [place] 03/2025. Denies any cardiac issues since DM: A1C = 7.3, FBS 140-160 Asthma: Mostly resolved, some SCOTT with exercise, no rescue inhaler MERCEDEZ: Doesn't tolerate CPAP Anesthesia Pre-Procedure Meds Is the patient on any of the following meds?: GLP1/DPP4 and SGLT2 Inhib PMFSH Active Problems Active Problems: All Active Problems Rotator cuff tear, right (Acute) Internal derangement of right shoulder (Acute) Past Medical History Medical History (Updated 12/05/24 @ 10:50 by Yuni Machado RN) Arthritis Non-alcoholic fatty liver disease Claustrophobia Asthma Myocardial infarction Migraines MERCEDEZ (obstructive sleep apnea) CAD (coronary artery disease) Diabetes GERD (gastroesophageal reflux disease) Elevated cholesterol HTN (hypertension) Family History Family history of problems with anesthesia: No Surgical History Surgical History Hx of cardiac catheterization History of esophagogastroduodenoscopy (EGD) H/O colonoscopy Hx of cholecystectomy Hx of heart artery stent History of Problems with Anesthesia: No Social History Social History Are you a primary field care advocate to a significant other at home: No Do you presently have visiting nurse or other home services: No Patient Tobacco Use Status: Current everyday Tobacco user Tobacco use type: Cigarette Cigarettes Per Day: 6 Years Smoked: 32 Use of substances other than those prescribed or required for medical reasons: No Have you been hit, kicked, punched, or otherwise hurt by someone within the past year? If so, by whom?: No Spiritual Healthcare Practices: no Christian Healthcare Practices: no Cultural Healthcare Practices: no Are you DNR?: No Advance Directives: No ( is primary contact) Advance Directives on File: No Poor oral hygiene: No Meds Allergies Allergy/AdvReac Type Severity Reaction Status Date / Time bee pollen (bee stings) Allergy Severe Anaphylaxis Verified 12/14/24 13:15 Iodinated Contrast Media Allergy Severe Anaphylaxis Verified 12/14/24 13:15 (Contrast Dye) NSAIDS (Non-Steroidal AdvReac Intermediate Abdominal Verified 12/14/24 13:15 Anti-Inflamma Pain Home Medications ?Medication ?Instructions ?Recorded ?Confirmed ?Last Taken ?Type amlodipine 10 mg tablet 10 mg PO QAM 09/25/24 12/05/24 12/19/24 History dulaglutide 3 mg/0.5 mL 3 mg subcut QWEEK 09/25/24 12/05/24 12/11/24 History subcutaneous pen injector (Trulicity) empagliflozin 25 mg tablet 25 mg PO QAM 09/25/24 12/05/24 12/11/24 History (Jardiance) lisinopril 20 mg tablet 20 mg PO QAM 09/25/24 12/05/24 Unknown History metoprolol tartrate 100 mg tablet 100 mg PO QAM 09/25/24 12/05/24 12/19/24 History pantoprazole 20 mg tablet,delayed 20 mg PO QAM 09/25/24 12/05/24 12/19/24 History release prasugrel HCl 10 mg tablet 10 mg PO QAM 09/25/24 12/05/24 12/11/24 History rosuvastatin 40 mg tablet 40 mg PO QAM 09/25/24 12/05/24 Unknown History insulin glargine 100 unit/mL (3 12 unit subcut BEDTIME 12/04/24 12/05/24 Unknown History mL) subcutaneous pen (Lantus Solostar U-100 Insulin) nitroglycerin 0.4 mg sublingual 0.4 mg sublingual ONCE PRN Chest 12/04/24 12/05/24 Unknown History tablet Pain sildenafil 50 mg tablet 50 mg PO DAILY PRN intercourse 12/04/24 12/05/24 Unknown History Exam Height,Weight and Vital Signs: Height 5 ft 5 in Weight 89.358 kg Last Vital Signs Pulse 110 H 12/05/24 09:59 Resp 20 12/05/24 09:59 BP 129/70 12/05/24 09:59 Pulse Ox 96 12/05/24 09:59 O2 Del Method Room Air 12/05/24 09:59 Pertinent Lab Results Pertinent Lab Results: WBC: 9.1 x10E3/uL (05/30/24) INR: 0.9 (05/06/24) Sodium: 136 mmol/L (11/21/24) Bilirubin, Total: <0.2 (05/30/24) Cholesterol:?206 mg/dL?High (05/30/24) RBC: 4.87 (05/30/24) Protime (PT): 9.6 seconds (05/06/24) Potassium: 4.3 mmol/L (11/21/24) ? HDL Cholesterol:?32 mg/dL?Low (05/30/24) Hgb: 13.4 Gm/dL (05/30/24) APTT: 27.5 seconds (05/06/24) Chloride:?97 mmol/L?Low (11/21/24) ? Non HDL Cholesterol:?174 mg/dL?High (05/30/24) Hct: 41.3 % (05/30/24) ? Bicarbonate Level: 23 mmol/L (11/21/24) ? ? MCV: 85 fL (05/30/24) ? Anion Gap: 16 mmol/L (11/21/24) ? ? Platelet Count: 257 x10E3/uL (05/30/24) ? Glucose Level:?223 mg/dL?High (11/21/24) ? BUN: 17 mg/dL (11/21/24) ? BUN: 14 mg/dL (05/30/24) ? Creatinine-Blood: 0.98 mg/dL (11/21/24) ? Estimated GFR Creatinine: 96 ML/MIN/1.73 M2 (11/21/24) ? Calcium: 10.3 mg/dL (11/21/24) ? Protein, Total: 6.7 Gm/dL (05/30/24) ? Albumin: 4.4 Gm/dL (05/30/24) ? Alkaline Phosphatase:?131 IU/L?High (05/30/24) ? AST (SGOT): 17 IU/L (05/30/24) ? ALT (SGPT): 22 IU/L (05/30/24) ? ? Airway Mallampati Class: II TM Dist: >3cm Neck ROM: Full Loose/Missing/Broken Teeth: Yes (Missing throughout) Heart: RRR - tachy Lungs: CTAB Assessment and Plan Assessment Anesthesia Assessment: Anesthesia Plan Discussed, Smoking Cess. Discussed and PAT Visit Final Anesthetic Review Family History of Problems with Anesthesia: No History of Problems with Anesthesia: No Documented by User: Joanne Washburn NP 12/07/24 13:40 HPI - Anesthesia Eval Consult details Narrative: 44yo M for Right Arthroscopic Rotator Cuff Repair, 12/19/24 Medically optimized per [facility] Preop clinic No recent illness No CP/SOB with a lot of walking, 3 flights of stairs at home CAD s/p [place] x 2/Stents: 2022. Previously followed cardiololgy in [place] - new pt appointment in [place] 03/2025. Denies any cardiac issues since, see cardiac testing below DM: A1C = 7.3, FBS 140-160 Asthma: Mostly resolved, some SCOTT with exercise, no rescue inhaler MERCEDEZ: Doesn't tolerate CPAP PMFSH Past Medical History Medical History (Updated 12/05/24 @ 10:50 by Yuni Machado RN) Arthritis Non-alcoholic fatty liver disease Claustrophobia Asthma Myocardial infarction Migraines MERCEDEZ (obstructive sleep apnea) CAD (coronary artery disease) Diabetes GERD (gastroesophageal reflux disease) Elevated cholesterol HTN (hypertension) Surgical History Surgical History Hx of cardiac catheterization History of esophagogastroduodenoscopy (EGD) H/O colonoscopy Hx of cholecystectomy Hx of heart artery stent Social History Social History Are you a primary field care advocate to a significant other at home: No Do you presently have visiting nurse or other home services: No Patient Tobacco Use Status: Current everyday Tobacco user Tobacco use type: Cigarette Cigarettes Per Day: 6 Years Smoked: 32 Use of substances other than those prescribed or required for medical reasons: No Have you been hit, kicked, punched, or otherwise hurt by someone within the past year? If so, by whom?: No Spiritual Healthcare Practices: no Christian Healthcare Practices: no Cultural Healthcare Practices: no Are you DNR?: No Advance Directives: No ( is primary contact) Advance Directives on File: No Poor oral hygiene: No Meds Allergies Allergy/AdvReac Type Severity Reaction Status Date / Time bee pollen (bee stings) Allergy Severe Anaphylaxis Verified 12/14/24 13:15 Iodinated Contrast Media Allergy Severe Anaphylaxis Verified 12/14/24 13:15 (Contrast Dye) NSAIDS (Non-Steroidal AdvReac Intermediate Abdominal Verified 12/14/24 13:15 Anti-Inflamma Pain Home Medications ?Medication ?Instructions ?Recorded ?Confirmed ?Last Taken ?Type amlodipine 10 mg tablet 10 mg PO QAM 09/25/24 12/05/24 12/19/24 History dulaglutide 3 mg/0.5 mL 3 mg subcut QWEEK 09/25/24 12/05/24 12/11/24 History subcutaneous pen injector (Trulicity) empagliflozin 25 mg tablet 25 mg PO QAM 09/25/24 12/05/24 12/11/24 History (Jardiance) lisinopril 20 mg tablet 20 mg PO QAM 09/25/24 12/05/24 Unknown History metoprolol tartrate 100 mg tablet 100 mg PO QAM 09/25/24 12/05/24 12/19/24 History pantoprazole 20 mg tablet,delayed 20 mg PO QAM 09/25/24 12/05/24 12/19/24 History release prasugrel HCl 10 mg tablet 10 mg PO QAM 09/25/24 12/05/24 12/11/24 History rosuvastatin 40 mg tablet 40 mg PO QAM 09/25/24 12/05/24 Unknown History insulin glargine 100 unit/mL (3 12 unit subcut BEDTIME 12/04/24 12/05/24 Unknown History mL) subcutaneous pen (Lantus Solostar U-100 Insulin) nitroglycerin 0.4 mg sublingual 0.4 mg sublingual ONCE PRN Chest 12/04/24 12/05/24 Unknown History tablet Pain sildenafil 50 mg tablet 50 mg PO DAILY PRN intercourse 12/04/24 12/05/24 Unknown History Exam Narrative Narrative: EKG 11/21/24 NSR, rate 93, ST & T wave abnormality, consider inferior ischemia, no change compared to EKG 02-29-24. ECHO 08/22/23 Normal LVEF 55-60% Grade I diastolic dysfunction No significant valvular abnormalities Normal left atrium Cardiac Cath 08/22/23 Nonobstructive CAD Normal LVEDP Mild to moderate aortic stenosis based on LV to AO pulback gradient of 24 mmHg Documented by User: Barrington Chow MD 12/19/24 07:26 [facility] Past Medical History Medical History (Updated 12/05/24 @ 10:50 by Yuni Machado RN) Arthritis Non-alcoholic fatty liver disease Claustrophobia Asthma Myocardial infarction Migraines MERCEDEZ (obstructive sleep apnea) CAD (coronary artery disease) Diabetes GERD (gastroesophageal reflux disease) Elevated cholesterol HTN (hypertension) Surgical History Surgical History Hx of cardiac catheterization History of esophagogastroduodenoscopy (EGD) H/O colonoscopy Hx of cholecystectomy Hx of heart artery stent Social History Social History Are you a primary field care advocate to a significant other at home: No Do you presently have visiting nurse or other home services: No Patient Tobacco Use Status: Current everyday Tobacco user Tobacco use type: Cigarette Cigarettes Per Day: 6 Years Smoked: 32 Use of substances other than those prescribed or required for medical reasons: No Have you been hit, kicked, punched, or otherwise hurt by someone within the past year? If so, by whom?: No Spiritual Healthcare Practices: no Christian Healthcare Practices: no Cultural Healthcare Practices: no Are you DNR?: No Advance Directives: No ( is primary contact) Advance Directives on File: No Poor oral hygiene: No Meds Allergies Allergy/AdvReac Type Severity Reaction Status Date / Time bee pollen (bee stings) Allergy Severe Anaphylaxis Verified 12/14/24 13:15 Iodinated Contrast Media Allergy Severe Anaphylaxis Verified 12/14/24 13:15 (Contrast Dye) NSAIDS (Non-Steroidal AdvReac Intermediate Abdominal Verified 12/14/24 13:15 Anti-Inflamma Pain Home Medications ?Medication ?Instructions ?Recorded ?Confirmed ?Last Taken ?Type amlodipine 10 mg tablet 10 mg PO QAM 09/25/24 12/05/24 12/19/24 History dulaglutide 3 mg/0.5 mL 3 mg subcut QWEEK 09/25/24 12/05/24 12/11/24 History subcutaneous pen injector (Trulicity) empagliflozin 25 mg tablet 25 mg PO QAM 09/25/24 12/05/24 12/11/24 History (Jardiance) lisinopril 20 mg tablet 20 mg PO QAM 09/25/24 12/05/24 Unknown History metoprolol tartrate 100 mg tablet 100 mg PO QAM 09/25/24 12/05/24 12/19/24 History pantoprazole 20 mg tablet,delayed 20 mg PO QAM 09/25/24 12/05/24 12/19/24 History release prasugrel HCl 10 mg tablet 10 mg PO QAM 09/25/24 12/05/24 12/11/24 History rosuvastatin 40 mg tablet 40 mg PO QAM 09/25/24 12/05/24 Unknown History insulin glargine 100 unit/mL (3 12 unit subcut BEDTIME 12/04/24 12/05/24 Unknown History mL) subcutaneous pen (Lantus Solostar U-100 Insulin) nitroglycerin 0.4 mg sublingual 0.4 mg sublingual ONCE PRN Chest 12/04/24 12/05/24 Unknown History tablet Pain sildenafil 50 mg tablet 50 mg PO DAILY PRN intercourse 12/04/24 12/05/24 Unknown History Exam Airway Mallampati Class: III Assessment and Plan Assessment Anesthesia Assessment: Chart Reviewed Final Anesthetic Review NPO: Yes ASA Class: III Final Preanesthetic Review: No Changes in Pt Med Stat, Meds/Allgs Chart Reviewed, Consent Obtained/Reviewed and Anes Risks/Benef Reviewed Patient Risk: Intermediate Procedure Risk: Intermediate Anesthetic Plan Anesthetic Plan: GA and Regional Block Disposition: Standard PACU
[2024-12-19] VITALS (12 sets, daily range): BP systolic 102–139; BP diastolic 50–85; PULSE 70–80; RESP 12–16; TEMP 36.1–36.6; O2SAT 90–97; BMI 33.3
[2024-12-19] MEDS: Lactated Ringers 1,000 ML 100 ML IVCONT (07:32)
[2024-12-19 07:45] LABS: Glucose, Whole Blood 212 mg/dL (60-115)
--- NOTE | 2024-12-19 08:13 | MHC.SHP ---
Pre-Procedural Eval Section A - 24 Hr Update-Section A only Date of Service: 12/19/24 The patient is an INPATIENT: No Changes since office visit: No Cold of Flu in the past 2 weeks, No New Medical Problems, No Changes in Medication and No Patient answered all questions The patient has been examined within 24 hours of the surgical procedure. The History & Physical has been completed within 30 days and I have reviewed it.: Yes Section B - Complete if H&P > 30 days Chief Complaint: Unspecified rotator cuff tear or rupture of right Allergies: Allergies Allergy/AdvReac Type Severity Reaction Status Date / Time bee pollen (bee stings) Allergy Severe Anaphylaxis Verified 12/14/24 13:15 Iodinated Contrast Media Allergy Severe Anaphylaxis Verified 12/14/24 13:15 (Contrast Dye) NSAIDS (Non-Steroidal AdvReac Intermediate Abdominal Verified 12/14/24 13:15 Anti-Inflamma Pain Plan I have reviewed the history and physical and performed a pertinent physical examination on my patient. No changes have occurred unless specified. Time Spent With Patient Time: Total time managing care of this patient today ____ minutes.
--- NOTE | 2024-12-19 10:24 | P.BOP_ITS ---
Brief Operative Note Date of Service: 12/26/24 Pre-op diagnosis: Right RTC tear Post-op diagnosis: same Procedure: Right RTC repair Implants: S&N 4.75 double loaded Helacoil medial row x 2 5.0 lateral row knotless Helacoil x 2 Regeneten collagen bio inductive patch, large Surgeon: Brian Bush MD Anesthesia: GETA and regional Was an Health Care Legal Assistant used for this Procedure?: Yes Health Care Legal Assistant: Alison Ha Estimated blood loss (mL): 10 IV fluids (mL): 1,000 Pathology: none sent Condition: stable Disposition: PACU
--- NOTE | 2024-12-20 07:44 | P.OP_ITS ---
Operative Note Operative Note Date of Service: 12/19/24 Narrative: Date of Service: 12/26/24 Pre-op diagnosis: Right RTC tear Post-op diagnosis: same Procedure: Right RTC repair Implants: S&N 4.75 double loaded Helacoil medial row x 2 5.0 lateral row knotless Helacoil x 2 Regeneten collagen bio inductive patch, large Surgeon: Brian Bush MD Anesthesia: GETA and regional Was an Patient Services Assistant used for this Procedure?: Yes Patient Services Assistant: Alison Ha Estimated blood loss (mL): 10 IV fluids (mL): 1,000 Pathology: none sent Condition: stable Disposition: PACU Procedure in detail: Patient was brought to the operating room and placed the the beach chair position. All bony prominences were well padded and the limb was prepped and draped in standard sterile fashion. A time out was called to identify proper site, proper procedure and proper surgeon. IV antibiotics per weight were administered. I began by making a posterolateral stab incision with a 15 blade. A blunt trochar was placed into the glenohumeral joint and I insufflated the joint with saline and a 30 degree arthroscope was placed. I established an outside- in anterior portal just distal to the biceps tendon. I then began my inspection of the glenohumeral joint. There was mild degenerative fraying at the biceps labral anchor. There was synovitis of the anterior interval and superior to the superior labrum. This was debrided with cautery Wand. There were no cartilage changes of the glenoid or humeral head. There was a full thickness undersurface RTC tear. The subcapularis was intact. I debrided the biceps anchor with a shaver. No additional intervention was warranted in the glenohumeral joint. I then removed the trochar and entered the subacromial space. A direct lateral portal was then established and I performed a bursectomy. The cuff was then examined. There was a full thickness tear of the supraspinatus and the anterior half of the infraspinatus with retraction. I established 2 lateral portals and then assess the tissue quality and mobility of the torn cuff. This was a retracted tear with bare area and chondral surfaces exposed but the tear was mobile. Therefore I established land acquisition specialist superior portal and used this to tap and then insert 2 4.75 medial row Healicoil anchors. I then used a loop suture technique to shuttle 2 limbs from the medial row anchors through the cuff anterior to posterior and equally distributed. I then debrided the bare area down to bleeding bone and, using a cross bridge configuration, brought 4 limbs to each of two lateral 5.0 anchors. This re-approximated the cuff anatomy anatomically. Given the size of the tear a large Regeneten bio inductive patch was placed via a lateral portal. This was adhered to the cuff medially with peek edmond and laterally with 2 peek bone edmond. I was satisfied with the position of the patch. A 5 mm subacromial decompression was performed prior to patch placement. This was done via anterolateral portal using a bur. Final images were captured and I was satisfied with the repair. Portals were closed with nylon. Patient was placed in an abduction sling, extubated and brought to the recovery room in stable condition. There were no known complications.
== END 2024-12-19 12:36 | disposition home or self-care (01) ==
LOC: HO.SSS 06:58
PROVIDERS: Visit Provider Orthopaedic Surgery
PROC: (CPT 29827; principal; 2024-12-19 08:30)
DX: S46.011A Strain of muscle(s) and tendon(s) of the rotator cuff of right shoulder, initial encounter (principal); M25.511 Pain in right shoulder; X58.XXXA Exposure to other specified factors, initial encounter; Y93.89 Activity, other specified; Y92.9 Unspecified place or not applicable; Y99.9 Unspecified external cause status; R20.0 Anesthesia of skin; R20.2 Paresthesia of skin; M65.911 Unspecified synovitis and tenosynovitis, right shoulder; I25.10 Atherosclerotic heart disease of native coronary artery without angina pectoris; Z95.5 Presence of coronary angioplasty implant and graft; I25.2 Old myocardial infarction; I10 Essential (primary) hypertension; E78.5 Hyperlipidemia, unspecified; E11.9 Type 2 diabetes mellitus without complications; G43.909 Migraine, unspecified, not intractable, without status migrainosus; G47.33 Obstructive sleep apnea (adult) (pediatric); Z79.02 Long term (current) use of antithrombotics/antiplatelets; Z79.4 Long term (current) use of insulin; Z79.85 Long-term (current) use of injectable non-insulin antidiabetic drugs; Z79.899 Other long term (current) drug therapy; Z91.041 Radiographic dye allergy status; F17.210 Nicotine dependence, cigarettes, uncomplicated; K21.9 Gastro-esophageal reflux disease without esophagitis
CPT/HCPCS: 29827; 82947; C1713; C1763; J0131; J0165; J0665; J0690; J1100; J2003; J2250; J2405; J2704; J3010

== ENCOUNTER → 2024-12-19 06:57 | Outpatient (BNV) | payer OTHER, SELFPAY | PROVIDERS: Visit Provider Orthopaedic Surgery | DX: S46.011A Strain of muscle(s) and tendon(s) of the rotator cuff of right shoulder, initial encounter (principal) | CPT/HCPCS: 29827 ==

== ENCOUNTER 2024-12-27 09:37 | Outpatient (AMB) | payer OTHER, SELFPAY ==
--- NOTE | 2024-12-27 09:41 | A.OFFVIS_ITS ---
Vital Signs 12/27/24 09:48 Height 5 ft 5 in Weight 199 lb BMI 33.1 Handedness Right Intake Visit Reasons: PO RT RTC 12/19/24 NE Intake Note: Stefano is a 44 year old right hand dominant male who presents today for a post operative appointment for his right rotator cuff repair done on 12/19/[address] Bush. Patient reports he is still having a lot of pain. He notices that his pain is worse when he wakes up. Patient describes his pain as throbbing. Allergies bee pollen (bee stings) Allergy (Severe, Verified 12/27/24 09:47) Anaphylaxis Iodinated Contrast Media (Contrast Dye) Allergy (Severe, Verified 12/27/24 09:47) Anaphylaxis NSAIDS (Non-Steroidal Anti-Inflamma Adverse Reaction (Intermediate, Verified 12/27/24 09:47) Abdominal Pain HPI HPI PO RT RTC 12/19/24 NE: Details: Mr. Ricardo is a 44-year-old right-hand dominant male who presents to the office today status post right shoulder rotator cuff repair with large collagen bio inductive patch performed on 12/20/[address] Bush. Patient presents to the office today in the abduction sling appropriately positioned. He reports that he is having difficulty with pain management specifically at night. He reports that he wakes up in the middle of the night and significant pain. He is taking the pain medications as prescribed but is unsure how to manage his pain at night while he is asleep. [facility] Medical History (Updated 12/05/24 @ 10:50 by Yuni Machado RN) Arthritis Non-alcoholic fatty liver disease Claustrophobia Asthma Myocardial infarction Migraines MERCEDEZ (obstructive sleep apnea) CAD (coronary artery disease) Diabetes GERD (gastroesophageal reflux disease) Elevated cholesterol HTN (hypertension) Surgical History Hx of cardiac catheterization History of esophagogastroduodenoscopy (EGD) H/O colonoscopy Hx of cholecystectomy Hx of heart artery stent Social History Are you a primary daycare manager to a significant other at home: No Do you presently have visiting nurse or other home services: No Comment: counts correct Patient Tobacco Use Status: Current everyday Tobacco user Tobacco use type: Cigarette Cigarettes Per Day: 6 Years Smoked: 32 Review of Systems Const All systems reviewed & are unremarkable except as noted in HPI and below Physical Exam Vital Signs: BMI result Body Mass Index 33.1 Const General: cooperative, healthy appearing and no acute distress Resp Effort & Inspection: normal respiratory effort and able to speak in complete sentences Extrem Other: Right shoulder incision sites are clean dry and intact. Sutures intact. No surrounding erythema or drainage. No signs of infection. Forward flexion abduction to 45 degrees. External rotation to neutral. NVI. Psych Appearance: grossly normal Mental Status: mental status grossly normal Attitude: cooperative Assessment & Plan Assessment & Plan (1) Status post right rotator cuff repair: Code(s): Z98.890 - Other specified postprocedural states Category: Surgical Plan Mr. Ricardo is a 44-year-old right-hand dominant male who presents to the office today status post right shoulder rotator cuff repair with large collagen bio inductive patch performed on 12/20/[address] Bush. Patient presents to the office today in the abduction sling appropriately positioned. He reports that he is having difficulty with pain management specifically at night. He reports that he wakes up in the middle of the night and significant pain. He is taking the pain medications as prescribed but is unsure how to manage his pain at night while he is asleep. While in the office today, sutures are removed and Steri-Strips were applied. Patient was placed back into the abduction sling. He was instructed that he should remain in the sling for roughly 6 weeks postoperatively. He was educated on signs of infection, which are as follows but not limited to erythema, edema, drainage, or warmth. If he is to experience any of these symptoms, he must contact the office immediately or present to the ED for evaluation. Patient und erstands and accepts. A physical therapy order has been ordered stat with a goal of getting the patient into physical therapy within the next week. A handout was provided to the patient with pendulum exercises that he may perform in the meantime. In regards to his pain management overnight I recommended the patient set an alarm for 4 hours after taking his last dose of pain medication when he is due for his next dose. I reassured the patient that this will subside over time. He will follow up in [address] Bush, sooner if needed. Orders: Orders PT Evaluation and Treatment Today Z98.890 - Other specified postprocedural states Coding Level of Care Code Global (63883) Diagnoses Status post right rotator cuff repair Z98.890
[2024-12-27 09:48] VITALS: BMI 33.1
== END 2024-12-27 10:10 | disposition home or self-care (01) ==
LOC: HO.HOS 09:38
PROVIDERS: Visit Provider Physician Assistant
DX: Z98.890 Other specified postprocedural states (principal)
CPT/HCPCS: 99024

== ENCOUNTER → 2024-12-27 09:37 | Outpatient (BNVA) | payer OTHER, SELFPAY | PROVIDERS: Visit Provider Physician Assistant | DX: M25.511 Pain in right shoulder (principal); Z98.890 Other specified postprocedural states | CPT/HCPCS: 99212 ==